=== PATIENT | male | born 1990 ===

== ENCOUNTER 2021-05-05 09:58 | Emergency (ER) | payer SELFPAY ==
[2021-05-05 10:13] VITALS: BP 117/74
--- NOTE | 2021-05-05 10:40 | Emergency Department Report ---
ED ENT HPI - General Chief complaint: Sore Throat Stated complaint: SORE THROAT EARS Time Seen by Provider: 05/05/21 10:30 Source: patient Mode of arrival: Ambulatory Limitations: No Limitations - History of Present Illness Initial comments: 31-year-old male with a past medical history of chronic low back pain presents to the ER today with complaints of sore throat and left ear pain. Patient states that his symptoms started about 1 to 2 days ago. He denies any associated rhinorrhea, nasal congestion cough fever or chills. Patient reports that it is painful to swallow but he is able to swallow. He reports no drooling or trismus or difficulty breathing. He reports no other symptoms at this time. MD complaint: sore throat, ear pain -: days(s) (1-2) - Related Data Previous Rx's Medication Instructions Recorded Last Taken Type Amoxicillin [Trimox CAP] 500 mg PO Q12H #20 capsule 05/05/21 Unknown Rx dexAMETHasone [Decadron] 4 mg PO ONCE #5 tablet 05/05/21 Unknown Rx Allergies Allergy/AdvReac Type Severity Reaction Status Date / Time No Known Allergies Allergy Unverified 05/05/21 10:10 ED Dental HPI - General Chief complaint: Sore Throat Stated complaint: SORE THROAT EARS Time Seen by Provider: 05/05/21 10:30 Source: patient Mode of arrival: Ambulatory Limitations: No Limitations - Related Data Previous Rx's Medication Instructions Recorded Last Taken Type Amoxicillin [Trimox CAP] 500 mg PO Q12H #20 capsule 05/05/21 Unknown Rx dexAMETHasone [Decadron] 4 mg PO ONCE #5 tablet 05/05/21 Unknown Rx Allergies Allergy/AdvReac Type Severity Reaction Status Date / Time No Known Allergies Allergy Unverified 05/05/21 10:10 ED Review of Systems ROS: Stated complaint: SORE THROAT EARS Other details as noted in HPI Comment: All other systems reviewed and negative Constitutional: denies: chills, fever ENT: ear pain, throat pain. denies: congestion Respiratory: denies: cough, shortness of breath, SOB with exertion, SOB at rest, wheezing Cardiovascular: denies: chest pain, palpitations, dyspnea on exertion, edema, syncope, paroxysmal nocturnal dyspnea Gastrointestinal: denies: abdominal pain, nausea, diarrhea, constipation, hematemesis, melena, hematochezia Genitourinary: denies: urgency, dysuria Musculoskeletal: denies: back pain, joint swelling, arthralgia Skin: denies: rash, lesions, change in color, change in hair/nails, pruritus ED Past Medical Hx - Past Medical History Previous Medical History?: No - Surgical History Past Surgical History?: No - Social History Smoking Status: Current Every Day Smoker Substance Use Type: Alcohol - Medications Home Medications: Home Medications Medication Instructions Recorded Confirmed Last Taken Type Amoxicillin [Trimox CAP] 500 mg PO Q12H #20 capsule 05/05/21 Unknown Rx dexAMETHasone [Decadron] 4 mg PO ONCE #5 tablet 05/05/21 Unknown Rx ED Physical Exam - General Limitations: No Limitations General appearance: in no apparent distress - Head Head exam: Present: atraumatic, normocephalic, normal inspection - Eye Eye exam: Present: normal appearance, PERRL, EOMI Pupils: Present: normal accommodation - ENT ENT exam: Present: mucous membranes moist, TM's normal bilaterally - Expanded ENT Exam Expanded Mouth exam: Present: normal external inspection Throat exam: Positive: tonsillar erythema, tonsillomegaly, tonsillar exudate (Mainly on the right tonsil). Negative: R peritonsillar mass, L peritonsillar mass - Neck Neck exam: Present: normal inspection, full ROM, lymphadenopathy (Prominent anterior right cervical adenopathy with mild tenderness to palpation but no overlying erythema) - Respiratory Respiratory exam: Present: normal lung sounds bilaterally. Absent: respiratory distress, wheezes, rales, rhonchi - Cardiovascular Cardiovascular Exam: Present: regular rate, normal rhythm, normal heart sounds - Neurological Exam Neurological exam: Present: alert, oriented X3, CN II-XII intact, normal gait - Psychiatric Psychiatric exam: Present: normal affect, normal mood - Skin Skin exam: Present: intact ED Course Vital Signs 05/05/21 10:11 Temperature 98.9 F Pulse Rate 76 Respiratory 20 Rate Blood Pressure 117/74 O2 Sat by Pulse 97 Oximetry ED Medical Decision Making - Medical Decision Making The patient is resting comfortably and is well-appearing and in no acute distress. There is no respiratory distress, no stridor and the mental status is normal. The neurological exam is normal, and there is no significant signs of dehydration. His history, exam, diagnostic testing and the patient current condition does not suggest an infectious process such as meningitis, retropharyngeal abscess, epiglottitis, peritonsillar abscess, Maude's angina, mastoiditis, severe meningitis, sepsis or any significant pathology warranting further testing, continued ED treatment, admission, consultation or any other evaluation at this time. The vital signs have been stable. The patient condition is stable and appropriate for discharge. Critical care attestation.: If time is entered above; I have spent that time in minutes in the direct care of this critically ill patient, excluding procedure time. ED Disposition Clinical Impression: Exudative tonsillitis Disposition: TO HOME OR SELFCARE Is pt being admited?: No Does the pt Need Aspirin: No Condition: Stable Instructions: Tonsillitis, [id number], Strep Throat, Adult, [id number] Additional Instructions: I recommend that you take the amoxicillin and the Decadron as prescribed. You can take Tylenol and ibuprofen from [id number] to help with pain. You can also use [id number] throat sprays or lozenges to help with pain. Recommend that you do lots of cold liquids including icing/ice which can also help with pain. And also doing soft diet. Follow-up closely with your primary care doctor. Return to the ER if your symptoms changes or worsens in any way. Prescriptions: dexAMETHasone [Decadron] 4 mg PO ONCE #5 tablet Amoxicillin [Trimox CAP] 500 mg PO Q12H #20 capsule Referrals: [facility] [Provider Group] - 3-5 Days Forms: Work/School Release Form(ED) Time of Disposition: 10:42
== END 2021-05-05 12:22 | disposition home or self-care (01) ==
LOC: ED 09:58
DX: J03.90 Acute tonsillitis, unspecified (principal); F17.200 Nicotine dependence, unspecified, uncomplicated; Z79.899 Other long term (current) drug therapy
CPT/HCPCS: 99282